=== PATIENT | female | born 1985 | race Caucasian/White ===

== ENCOUNTER 2023-08-15 12:30 | Emergency (ER) | payer OTHER, SELFPAY ==
--- NOTE | ~2023-08-15 | US_ITS ---
EXAMINATION: US pelvic complete DATE: 08/15/2023 14:23 INDICATION: Right lower quadrant abdominal pain. TECHNIQUE: Multiple transabdominal and transvaginal sonographic images of the pelvis were obtained. COMPARISON: CT abdomen and pelvis 08/15/2023 FINDINGS: TRANSABDOMINAL ULTRASOUND: The uterus measures 7.8 x 2.3 x 4.2 cm. There is no free fluid in the pelvis. TRANSVAGINAL ULTRASOUND: The endometrial complex measures 4 mm in thickness. The right ovary measures 7.1 x 4.4 x 7.0 cm. The left ovary measures 2.2 x 2.3 x 2.4 cm. There is a 6.5 cm mass in right ovary that contains fat by CT , consistent with a dermoid. There is normal vascular flow in the ovaries. IMPRESSION: 1. 6.5 cm dermoid in right ovary. Reviewed, dictated and finalized at location [facility].
--- NOTE | ~2023-08-15 | CT_ITS ---
CT of the Abdomen and Pelvis: Indication: Abdominal pain Technique: 2.5 mm axial scans were obtained through the abdomen and pelvis following intravenous adm inistration of 100 cc of Omnipaque 350. Dose reduction technique was used on this scan by utilizing a utomated exposure control and iterative reconstruction technique. The dose-length product (DLP) was 5 87.33 mGy-cm. Findings: Scans through the lung bases are unremarkable. The liver, spleen, pancreas, gallbladder, adrenals and kidneys are within normal limits. No evidence of aortic aneurysm. No lymphadenopathy. No bowel obstruction or bowel wall thickening. There is no evidence to suggest acute appendicitis. Images through the pelvis were performed. Urinary bladder unremarkable. There is a 7.5 x 5.0 cm right ovarian dermoid, with macroscopic fat, soft tissue components, and coarse calcifications. Suspected 2.7 cm complex left ovarian cyst. Impression: 7.5 x 5.0 cm right ovarian dermoid. 2.7 cm probable complex left ovarian cyst. Reviewed, dictated and finalized at [facility]. Impression: 7.5 x 5.0 cm right ovarian dermoid. 2.7 cm probable complex left ovarian cyst.
[2023-08-15 12:33] VITALS: BP 140/87; PULSE 89; RESP 20; TEMP 36.3; O2SAT 99
--- NOTE | 2023-08-15 12:53 | ED.ABDPAIN ---
HPI - Abdominal Pain General Chief Complaint: Abdominal Pain <MARLENA Gonzalez Last Filed: 08/15/23 15:06> Stated Complaint: abd pain <MARLENA Gonzalez Last Filed: 08/15/23 15:06> Time Seen by Provider: 08/15/23 12:39 <MARLENA Gonzalez Last Filed: 08/15/23 15:06> History of Present Illness HPI narrative: 38-year-old female presents emergency department for lower quadrant abdominal pain that started this morning. Patient states the pain is a dull ache and moves between the middle of her abdomen in the right lower quadrant. States it is worse with movement and better when she is at rest. She denies fever, nausea vomiting, diarrhea, dysuria or hematuria. Last bowel movement was 2 days ago and normal. Denies obstipation or prior abdominal surgeries. Denies difficulty eating. Last meal was oatmeal at 8:00 a.m.. <MARLENA Gonzalez Last Filed: 08/15/23 15:06> Related Data Allergies/Adverse Reactions: Allergies Allergy/AdvReac Type Severity Reaction Status Date / Time No Known Allergies Allergy Verified 08/15/23 12:37 <MARLENA Gonzalez Last Filed: 08/15/23 15:06> Review of Systems Review of Systems: CONSTITUTIONAL: Denies fever, chills, or sweats. EYES: Denies visual changes, redness, or discharge. ENT: Denies rhinorrhea, congestion, sore throat, or otalgia. CARDIOVASCULAR: Denies chest pain, palpitations, or edema. RESPIRATORY: Denies cough or dyspnea. GASTROINTESTINAL: See HPI GENITOURINARY: Denies dysuria or hematuria. SKIN: Denies rash or itching. MUSCULOSKELETAL: Denies back pain, joint pain, or myalgia. NEUROLOGIC: Denies headache, numbness, or weakness. PSYCHIATRIC: Denies anxiety or depression. <MARLENA Gonzalez Last Filed: 08/15/23 15:06> Exam Narrative: GENERAL: Well-appearing, well-nourished, and in no acute distress. HEAD: Normocephalic, atraumatic. EYES: PERRLA and EOMI. ENT: Nares clear, no rhinorrhea or epistaxis. Mucous membranes moist. NECK: Supple. CHEST: Clear to auscultation. No respiratory distress. HEART: Regular rate and rhythm. No murmur heard. Normal peripheral pulses. ABDOMEN: Quiet bowel sounds. Abdomen soft with tenderness in the right lower quadrant. No rebound, guarding or rigidity. Positive Rovsing sign, positive obturator sign. Negative psoas sign. No CVA tenderness. EXTREMITIES: Normal range of motion. No edema. SKIN: Warm, dry, no rash. NEURO: No focal deficits. Alert and oriented x3 <Kathleen Love PA-C - Last Filed: 08/15/23 15:06> Course MGMT ANALYST/PA Physician Supervision I agree with midlevel documentation; I performed the medical decision making component of this evaluation. <Noemí Hussein MD - Last Filed: 08/15/23 15:18> Vital Signs Vital signs: Vital Signs Temperature 97.4 F L 08/15/23 12:33 Pulse Rate 89 08/15/23 12:33 Respiratory Rate 20 08/15/23 12:33 Blood Pressure 140/87 08/15/23 12:33 Pulse Oximetry 99 08/15/23 12:33 Oxygen Delivery Room Air 08/15/23 12:33 Temperature 97.4 F L 08/15/23 12:33 Pulse Rate 89 08/15/23 12:33 Respiratory Rate 20 08/15/23 12:33 Blood Pressure 140/87 08/15/23 12:33 Pulse Oximetry 99 08/15/23 12:33 Oxygen Delivery Room Air 08/15/23 12:33 <Kathleen Love PA-C - Last Filed: 08/15/23 15:06> Vital Signs Temperature 97.4 F L 08/15/23 12:33 Pulse Rate 89 08/15/23 12:33 Respiratory Rate 20 08/15/23 12:33 Blood Pressure 140/87 08/15/23 12:33 Pulse Oximetry 99 08/15/23 12:33 Oxygen Delivery Room Air 08/15/23 12:33 Temperature 97.4 F L 08/15/23 12:33 Pulse Rate 89 08/15/23 12:33 Respiratory Rate 20 08/15/23 12:33 Blood Pressure 140/87 08/15/23 12:33 Pulse Oximetry 99 08/15/23 12:33 Oxygen Delivery Room Air 08/15/23 12:33 <Noemí Hussein MD - Last Filed: 08/15/23 15:18> MDM - Abdominal Pain MDM Narrative Medical decision making narrative:
[2023-08-15 13:02] LABS: Alanine Aminotransferase 37 U/L (6-35); Alkaline Phosphatase 70 U/L (38-126); Anion Gap 6 mmol/L (4-12); Aspartate Amino Transferase 32 U/L (14-36); Bilirubin,Total 0.8 mg/dL (0.2-1.3); Blood Urea Nitrogen 10 mg/dL (7-17); Calcium 9.3 mg/dL (8.4-10.2); Carbon Dioxide 30 mmol/L (22-30); Chloride 99 mmol/L (98-107); Estimated CRCL calculation 103 ml/min; Estimated Glomerular Filt Rate > 60; Glucose 104 mg/dL (65-110); Lipase 105 U/L (23-300); Potassium 4.2 mmol/L (3.4-5.0); Sodium 135 mmol/L (137-145)
[2023-08-15 13:03] LABS: Basophils Percent Auto 0.2 % (0.2-1.2); Hematocrit 43.9 % (37.0-47.0); Hemoglobin 14.9 g/dL (12.0-15.0); Immature Granulocyte Absolute 0.01 K/mm3 (0.00-0.031); Immature Granulocyte Percent A 0.2 % (0-0.5); Lymphocytes Percent Auto 25.5 % (18.3-44.2); Mean Corpuscular HGB Conc 33.9 g/dl (32-36); Mean Corpuscular Hemoglobin 31.1 pg (26-34); Mean Corpuscular Volume 91.6 fl (80-100); Mean Platelet Volume 9.4 fl (7.4-10.4); Monocytes Absolute Auto 0.3 K/mm3 (0.1-0.6); Monocytes Percent Auto 6.2 % (2.6-8.5); Neutrophils Absolute Auto 3.7 K/mm3 (1.3-6.7); Neutrophils Percent Auto 67.9 % (45.5-73.1); Platelet Count Result 303 k/mm3 (150-375); Red Blood Count 4.79 M/mm3 (4.2-5.4); Red Cell Distribution Width 13.2 % (11.5-14.5); White Blood Count 5.5 K/mm3 (4.5-10.0)
[2023-08-15 13:08] LABS: Appearance Urine Clear (Clear); Bilirubin Urine Negative (Negative); Blood Urine Negative (Negative); Color Urine Yellow (Yellow); Glucose Urine UA Negative (Negative); Ketones Urine Negative (Negative); Leukocyte Esterase Ur Negative LEU/UL (Negative); Nitrate Urine Negative (Negative); Protein Urine Negative (Negative); Specific Grav Ur 1.011 (1.001-1.035); Urobilinogen Urine 0.2 mg/dL (<2.0)
[2023-08-15 13:12] LABS: Add Urine Microscopic? NO
[2023-08-15 14:06] LABS: Lactic Acid Reflex 1.1 mmol/L (0.7-2.0)
== END 2023-08-15 15:17 | disposition home or self-care (01) ==
PROVIDERS: Emergency Medicine; Emergency Provider Physician Assistant
DX: D27.0 Benign neoplasm of right ovary (principal)
CPT/HCPCS: 36415; 74177; 76856; 80053; 81003; 81025; 83605; 83690; 85025; 99284; Q9967